=== PATIENT | male | born 1975 ===

== ENCOUNTER 2020-10-02 08:39 | Emergency (ER) | payer OTHER ==
[2020-10-02 09:00] VITALS: BP 163/97
--- NOTE | 2020-10-02 10:19 | Emergency Department Report ---
ED Back Pain/Injury HPI - General Chief Complaint: Back Pain/Injury Stated Complaint: BACK PAINS Time Seen by Provider: 10/02/20 10:14 Source: patient Limitations: No Limitations - History of Present Illness Initial Comments: 45-year-old -[place] male presents to the emergency room complaining of back pain that he has had for at least 2 years or longer. Patient reports that yesterday he was at a restaurant and he could not walk so EMS was called he was seen at [facility] and given prescriptions for Robaxin Neurontin and lidocaine. Patient states that he used lidocaine but none has not taking the Robaxin or Neurontin. Patient states today he feels much better and he is used a lidocaine patch. Patient states he is able to walk better. Patient denies any urinary bowel incontinent. He denies any injury. 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 Patient does have a surgical history of a left Achilles tendon rupture as well as nose and throat surgery. MD Complaint: back pain Onset/Timin -: year(s) Similar Symptoms Previously: Yes Radiation: none Severity scale (0 -10): 10 Quality: aching Consistency: constant Improves With: movement Worsens With: movement - Related Data Previous Rx's Medication Instructions Recorded Last Taken Type Ibuprofen [Motrin 800 MG tab] 800 mg PO Q8HR PRN #30 tablet 10/02/20 Unknown Rx Allergies Allergy/AdvReac Type Severity Reaction Status Date / Time No Known Allergies Allergy Unverified 10/02/20 08:51 ED Review of Systems ROS: Stated complaint: BACK PAINS Other details as noted in HPI Comment: All other systems reviewed and negative ED Past Medical Hx - Past Medical History Previous Medical History?: No - Surgical History Past Surgical History?: Yes Additional Surgical History: left achilles tendon; nose and throat - Medications Home Medications: Home Medications Medication Instructions Recorded Confirmed Last Taken Type Ibuprofen [Motrin 800 MG tab] 800 mg PO Q8HR PRN #30 tablet 10/02/20 Unknown Rx ED Physical Exam - General Limitations: No Limitations General appearance: alert, in no apparent distress - Head Head exam: Present: atraumatic, normocephalic - Eye Eye exam: Present: normal appearance - ENT ENT exam: Present: mucous membranes moist, normal external ear exam - Neck Neck exam: Present: normal inspection, full ROM - Respiratory Respiratory exam: Present: normal lung sounds bilaterally. Absent: accessory muscle use - Cardiovascular Cardiovascular Exam: Present: regular rate - Extremities Exam Extremities exam: Present: normal inspection, full ROM - Back Exam Back exam: Present: normal inspection - Neurological Exam Neurological exam: Present: alert, oriented X3, normal gait - Psychiatric Psychiatric exam: Present: normal affect, normal mood - Skin Skin exam: Present: warm, dry, intact, normal color. Absent: rash ED Course Vital Signs 10/02/20 08:57 Temperature 98.3 F Pulse Rate 95 H Respiratory 18 Rate Blood Pressure 163/97 [Right] O2 Sat by Pulse 98 Oximetry ED Medical Decision Making - Medical Decision Making 45-year-old -[place] male presents to the emergency room complaining of back pain that he has had for at least 2 years or longer. Patient reports that yesterday he was at a restaurant and he could not walk so EMS was called he was seen at [facility] and given prescriptions for Robaxin Neurontin and lidocaine. Patient states that he used lidocaine but none has not taking the Robaxin or Neurontin. Patient states today he feels much better and he is used a lidocaine patch. Patient states he is able to walk better. Patient denies any urinary bowel incontinent. He denies any injury. 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 Patient does have a surgical history of a left Achilles tendon rupture as well as nose and throat surgery. Discussed with patient that the medication was prescribed by [facility] provider as appropriate for treatment. I do recommend patient to follow-up with a back specialist as they may want to do MRI. I discussed with patient his tests can be done on an outpatient basis. Discussed with patient that to take the Robaxin Neurontin use the lidocaine patches and I will give him a prescription for 800 mg of ibuprofen and a return to work note. Patient verbalized understanding Critical care attestation.: If time is entered above; I have spent that time in minutes in the direct care of this critically ill patient, excluding procedure time. ED Disposition Clinical Impression: Chronic back pain greater than 3 months duration Disposition: - TO HOME OR SELFCARE Is pt being admited?: No Does the pt Need Aspirin: No Condition: Stable Instructions: Chronic Back Pain, Eusm-[place]-Sau[place], Back Injury Prevention Additional Instructions: Please take your medication for her back as prescribed. I do recommend to take it on a scheduled basis for the next 3 days. Increase your water intake advance your diet as tolerated. Do not operate heavy machinery while taking Neurontin. Continue scheduled lidocaine patches. Is very important for you to follow-up with an orthopedic provider that specializes in back. Prescriptions: Ibuprofen [Motrin 800 MG tab] 800 mg PO Q8HR PRN #30 tablet PRN Reason: Pain , Severe (7-10) Referrals: [facility] [Provider Group] - 3-5 Days Forms: Work/School Release Form(ED)
== END 2020-10-02 10:34 | disposition home or self-care (01) ==
LOC: ED 08:39
DX: G89.29 Other chronic pain (principal); Z98.890 Other specified postprocedural states; Z79.899 Other long term (current) drug therapy
CPT/HCPCS: 99282